=== PATIENT | female | born 1995 | race Caucasian/White ===

== ENCOUNTER 2022-09-02 08:00 | Day surgery (SDC) | payer OTHER ==
[~2022-09-02] VITALS: Ht 167.6 cm; Wt 103.4 kg
[2022-09-02] MEDS ORDERED: BUPIVACAINE-MPF/EPI 0.25% 30 ML VIAL INJ ONE (08:33)
[2022-09-02] MEDS ORDERED: LIDOCAINE MPF 1% 20 ML ONE (08:33)
[2022-09-02] MEDS ORDERED: ceFAZolin 1,000 MG VIAL ONE (11:44)
[2022-09-02] MEDS ORDERED: fentaNYL citrate 0.05 MG/ML VIAL ONE (11:52)
[2022-09-02] MEDS ORDERED: ROCURONIUM 50 MG/5 ML VIAL IV ONE ×2 (12:35)
[2022-09-02] MEDS ORDERED: PROPOFOL 200 MG/20 ML VIAL IV ONE ×2 (12:35)
[2022-09-02] MEDS ORDERED: KETOROLAC 60 MG/2 ML VIAL IM ONE (12:35)
[2022-09-02] MEDS ORDERED: ONDANSETRON 4 MG/2 ML VIAL ONE ×2 (12:36)
[2022-09-02] MEDS ORDERED: ONDANSETRON 4 MG/2 ML VIAL IV PRN (13:00)
[2022-09-02] MEDS ORDERED: HYDROcodone/APAP 5/325 MG 1 TAB TAB PO PRN (13:00)
[2022-09-02] MEDS ORDERED: MORPHINE SULFATE 2 MG/ML SYR IVP PRN (13:00)
[2022-09-02] MEDS ORDERED: MORPHINE SULFATE 4 MG/ML SYR IV PRN (13:00)
[2022-09-02] MEDS ORDERED: HYDROmorphone 1 MG/ML AMP IVP PRN (13:00)
[2022-09-02] MEDS ORDERED: LABETALOL 20 MG/4 ML VIAL IVP PRN (13:19)
[2022-09-02] MEDS ORDERED: hydrALAZINE 20 MG/ML VIAL IVP PRN (13:19)
[2022-09-02] MEDS ORDERED: METOCLOPRAMIDE 10 MG/2 ML INJ VIAL IVP PRN (13:19)
[2022-09-02] MEDS ORDERED: LACTATED RINGERS 1,000 ML IV SCH (13:20)
[2022-09-02] MEDS ORDERED: NEOSTIGMINE 1:1000 10 MG/10 ML VIAL ONE (13:25)
[2022-09-02] MEDS ORDERED: GLYCOPYRROLATE 0.2 MG/ML VIAL ONE ×3 (13:25)
[2022-09-02] MEDS ORDERED: HYDROmorphone PFS 2 MG/ML SYR ONE (13:32)
[2022-09-02] MEDS: HYDROmorphone 1 MG/ML AMP IVP PRN ×4 (13:35→14:05)
== END 2022-09-02 16:44 | disposition home or self-care (01) ==
LOC: MDS 08:00 → MMU 08:00 → MDS 16:44
PROVIDERS: ATTEND Surgery
DX: K80.10 Calculus of gallbladder with chronic cholecystitis without obstruction (principal); K21.9 Gastro-esophageal reflux disease without esophagitis; E03.9 Hypothyroidism, unspecified; F41.9 Anxiety disorder, unspecified; F32.A Depression, unspecified; Z79.899 Other long term (current) drug therapy; Z20.822 Contact with and (suspected) exposure to COVID-19
CPT/HCPCS: 36415; 47562; 71045; 82374; 85049; 86886; 86900; 86901; 87426; J0690; J1170; J1885; J2001; J2405; J2704; J2710; J3010; J3490; J7030; J7060